=== PATIENT | male | born 1990 | race Caucasian/White ===

== ENCOUNTER 2017-06-04 04:39 | Emergency (ER) | payer BC ==
[2017-06-04] MEDS ORDERED: Lorazepam 1 MG TAB ONE (05:56)
== END 2017-06-04 06:12 | disposition home or self-care (01) ==
LOC: ERS 04:39
DX: F41.9 Anxiety disorder, unspecified (principal); Z87.891 Personal history of nicotine dependence; Z79.899 Other long term (current) drug therapy
CPT/HCPCS: 99283